=== PATIENT | female | born 1990 | race Caucasian/White ===

== ENCOUNTER 2017-10-17 07:01 | Inpatient (IN) | payer OTHER ==
[~2017-10-17] VITALS: Ht 155 cm; Wt 68.0 kg
[2017-10-17] MEDS ORDERED: LACTATED RINGERS 1000ML 1,000 ML IV PRN (07:58)
[2017-10-17] MEDS ORDERED: OXYTOCIN-LR 20 UNITS/1000 ML 1,000 ML IV SCH ×3 (08:00→08:45)
[2017-10-17] MEDS ORDERED: OXYTOCIN 10 USP UNITS/ML 20 UNIT in LACTATED RINGERS 1000ML 1,000 ML IV SCH (08:00)
[2017-10-17] MEDS ORDERED: OXYTOCIN 10 USP UNITS/ML ONE ×2 (08:32→16:54)
[2017-10-17 08:42] LABS: HEMATOCRIT 34.5 % (36-48); MEAN CORPUSCULAR HEMOGLOBIN 33.2 pg (27.0-33.0); MEAN CORPUSCULAR HGB CONC 35.3 g/dL (32.0-36.0); MEAN CORPUSCULAR VOLUME 94.2 fL (79-99); PLATELET COUNT (AUTO) 191 K/uL (130-400); RED BLOOD CELL COUNT(AUTO) 3.66 MIL/uL (4.00-5.50); RED CELL DISTRIBUTION WIDTH 13.8 % (11.0-15.5); WHITE BLOOD COUNT (AUTO) 11.4 K/uL (4.8-10.8)
[2017-10-17] MEDS ORDERED: PROMETHAZINE HCL 25 MG/ML 1ML AMPULE IM SCH (10:45)
[2017-10-17] MEDS ORDERED: MEPERIDINE-PF 50 MG/ML SYG IVP SCH (10:45)
[2017-10-17] MEDS ORDERED: METHYLERGONOVINE MALEATE 0.2 MG/1 ML ML ONE (14:26)
[2017-10-17] MEDS ORDERED: METHYLERGONOVINE MALEATE 0.2 MG/1 ML ML IM SCH (14:30)
[2017-10-17] MEDS ORDERED: IBUPROFEN 600 MG TABLET ONE (15:12)
[2017-10-17] MEDS ORDERED: BENZOCAINE/LANOLIN/ALOE VERA 60 ML AEROSOL TP PRN (15:15)
[2017-10-17] MEDS ORDERED: LANOLIN 30GM OINTMENT TP PRN (15:15)
[2017-10-17] MEDS ORDERED: WITCH HAZEL 1 PAD TP PRN (15:15)
[2017-10-17] MEDS ORDERED: IBUPROFEN 600 MG TABLET PO PRN (15:15)
[2017-10-17] MEDS ORDERED: ACETAMINOPHEN 325 MG TAB PO PRN (15:15)
[2017-10-17 17:41] VITALS: BP 123/67
[2017-10-17] MEDS ORDERED: PNV1TABL17 PO (17:51)
[2017-10-17] MEDS ORDERED: FERR325T22 PO (17:51)
[2017-10-17 20:46] VITALS: BP 121/87
[2017-10-17] MEDS: DOCUSATE SODIUM 100 MG CAP PO SCH (20:49)
[2017-10-18 00:16] VITALS: BP 112/65
[2017-10-18 04:40] VITALS: BP 105/70
[2017-10-18 05:26] LABS: HEMATOCRIT 28.2 % (36-48); MEAN CORPUSCULAR HEMOGLOBIN 32.7 pg (27.0-33.0); MEAN CORPUSCULAR VOLUME 93.4 fL (79-99); PLATELET COUNT (AUTO) 159 K/uL (130-400); RED BLOOD CELL COUNT(AUTO) 3.02 MIL/uL (4.00-5.50); RED CELL DISTRIBUTION WIDTH 13.7 % (11.0-15.5); WHITE BLOOD COUNT (AUTO) 14.5 K/uL (4.8-10.8)
[2017-10-18 06:15] LABS: HEPATITIS Bs ANTIGEN SCREEN P Negative (Negative)
[2017-10-18] MEDS ORDERED: MEASLES/MUMPS/RUBELLA VACCINE, LIVE 0.5 ML/VIAL SQ SCH (06:15)
[2017-10-18] MEDS ORDERED: DIPH,PERTUSS(ACELL),TET VAC/PF 0.5 ML VIAL IM SCH (06:15)
[2017-10-18 08:21] VITALS: BP 116/62
[2017-10-18] MEDS: DOCUSATE SODIUM 100 MG CAP PO SCH (08:56)
[2017-10-18 11:53] VITALS: BP 113/71
[2017-10-18 16:17] VITALS: BP 118/70
== END 2017-10-18 17:45 | disposition home or self-care (01) | DRG 775 ==
LOC: LDH 07:01 → OBSVTOIN 07:01 → LDH 10:11 → WSH 17:40
PROVIDERS: ADMIT Obstetrics & Gynecology; ATTEND Obstetrics & Gynecology
PROC: 10E0XZZ Delivery of Products of Conception, External Approach (ICD-10-PCS; principal; 2017-10-17)
PROC: 0W8NXZZ Division of Female Perineum, External Approach (ICD-10-PCS; 2017-10-17)
PROC: 10907ZC Drainage of Amniotic Fluid, Therapeutic from Products of Conception, Via Natural or Artificial Opening (ICD-10-PCS; 2017-10-17)
PROC: 3E0234Z Introduction of Serum, Toxoid and Vaccine into Muscle, Percutaneous Approach (ICD-10-PCS; 2017-10-18)
PROC: 3E0134Z Introduction of Serum, Toxoid and Vaccine into Subcutaneous Tissue, Percutaneous Approach (ICD-10-PCS; 2017-10-18)
PROC: 3E0334Z Introduction of Serum, Toxoid and Vaccine into Peripheral Vein, Percutaneous Approach (ICD-10-PCS; 2017-10-18)
DX: O80 Encounter for full-term uncomplicated delivery (principal); Z3A.40 40 weeks gestation of pregnancy; Z37.0 Single live birth; Z23 Encounter for immunization
CPT/HCPCS: 36415; 82120; 83033; 85027; 86592; 86850; 86870; 86900; 86901; 87340; 90707; 90715; A4351; J2175; J2210; J2550; J2590; J2791; J7120